=== PATIENT | female | born 1970 | race African-American/Black ===

== ENCOUNTER 2022-11-03 14:32 | Emergency (ER) | payer BC ==
[~2022-11-03] VITALS: Ht 165.1 cm; Wt 174.6 kg
[2022-11-03 14:59] VITALS: BP 138/96
--- NOTE | 2022-11-03 15:06 | NUR ---
pt ambulatory to SERVANDO Iniguez
[2022-11-03] MEDS ORDERED: NAPR-54 PO ×2 (15:57→16:14)
[2022-11-03] MEDS ORDERED: ACET-5629 PO ×2 (15:57→16:14)
--- NOTE | 2022-11-03 16:21 | NUR ---
52 y/o female bib self, c/o pain is worsening over the course of 1 year, states she gets steroid injections every 6 months. states pain is so severe she cannot sleep at night states it feels like a throbbing pain. states she does not like to take norco because it makes her constipated, requesting percocet for relief for symtpoms. pmh: carpal tunnel syndrome, arthritis allergy: pencillin med: tramadol, ibuprofen (no relief)
[2022-11-03 16:25] VITALS: BP 158/93
--- NOTE | 2022-11-03 16:26 | NUR ---
Patient discharged with v/s stable. Written and verbal after care instructions given and explained. Patient alert, oriented and verbalized understanding of instructions. Ambulatory with steady gait. All questions addressed prior to discharge. ID band removed. Patient advised to follow up with PMD. Rx of naproxen, percocet given. Patient educated on indication of medication including possible reaction and side effects. Opportunity to ask questions provided and answered.
== END 2022-11-03 16:25 | disposition home or self-care (01) ==
LOC: MED 14:32
DX: M25.561 Pain in right knee (principal); Z88.0 Allergy status to penicillin; Z79.899 Other long term (current) drug therapy
CPT/HCPCS: 99283

== ENCOUNTER 2023-01-30 15:45 | Emergency (ER) | payer BC ==
[~2023-01-30] VITALS: Ht 165.1 cm; Wt 174.6 kg
[~2023-01-30 15:45] MED LIST: ACET-5629 PO; NAPR-54 PO
[2023-01-30 15:52] VITALS: BP 187/112; PULSE 117; RESP 18; TEMP 96.8; O2SAT 95
[2023-01-30] MEDS ORDERED: oxyCODONE/APAP 5/325 MG 1 TAB TAB PO ONE (16:55)
[2023-01-30] MEDS ORDERED: methocarbamoL 500 MG TAB PO SCH (16:55)
[2023-01-30] MEDS ORDERED: ACET-8905 PO (18:25)
[2023-01-30 18:50] VITALS: BP 160/52; PULSE 88; RESP 18; TEMP 97.7; O2SAT 97
== END 2023-01-30 18:50 | disposition home or self-care (01) ==
LOC: MED 15:45
DX: M75.21 Bicipital tendinitis, right shoulder (principal); Z79.899 Other long term (current) drug therapy
CPT/HCPCS: 73030; 99283